=== PATIENT | female | born 1965 | race Two or more races ===

== ENCOUNTER 2017-10-29 14:05 | Emergency (ER) | payer OTHER ==
[~2017-10-29] VITALS: Ht 144.8 cm; Wt 44.5 kg
[~2017-10-29 14:05] MED LIST: ANSAID100 MG PO; BENZONATATE200 M1 PO; FOLIC ACID1 MG PO; INTESTINEX1 CA1 PO; IRON325 ( 65 ) PO; LEVAQUIN750 MG PO; Neurin-Sl Tablet Sl SL; SUPERVITE EC CAP1 MG PO; SYNTHROID112 MCG PO; TUSSI-PRES B LIQ5 ML PO; VITAMIN B-121000 MCG PO
== END 2017-10-29 14:48 | disposition home or self-care (01) ==
LOC: ER 14:05
DX: T21.22XA Burn of second degree of abdominal wall, initial encounter (principal); X10.2XXA Contact with fats and cooking oils, initial encounter; Y93.89 Activity, other specified; Y92.89 Other specified places as the place of occurrence of the external cause; Y99.8 Other external cause status